=== PATIENT | female | born 1995 | race Caucasian/White ===

== ENCOUNTER 2019-04-28 20:12 | Emergency (ER) | payer MEDICAID ==
[~2019-04-28] VITALS: Ht 160 cm; Wt 52.2 kg
[~2019-04-28 20:12] MED LIST: NYQUIL
[2019-04-28 20:22] VITALS: BP 113/81
== END 2019-04-28 21:30 | disposition left against medical advice (07) ==
LOC: ER 20:12
DX: R51 Headache (principal); M54.2 Cervicalgia; M25.561 Pain in right knee; Z53.21 Procedure and treatment not carried out due to patient leaving prior to being seen by health care provider; V43.52XA Car driver injured in collision with other type car in traffic accident, initial encounter; Y93.89 Activity, other specified; Y92.488 Other paved roadways as the place of occurrence of the external cause; Y99.8 Other external cause status
CPT/HCPCS: 81025

== ENCOUNTER 2020-04-29 19:54 | Emergency (ER) | payer MEDICAID ==
[~2020-04-29] VITALS: Ht 160 cm; Wt 55.3 kg
[2020-04-30] MEDS ORDERED: SUMAtriptan SUCCINATE 25 MG TAB PO ONE (01:00)
[2020-04-30 01:10] VITALS: BP 126/80
== END 2020-04-30 01:17 | disposition home or self-care (01) ==
LOC: ER 19:54
DX: G43.909 Migraine, unspecified, not intractable, without status migrainosus (principal)

== ENCOUNTER 2021-01-13 22:06 | Emergency (ER) | payer MEDICAID ==
[~2021-01-13] VITALS: Ht 162.6 cm; Wt 52.2 kg
[2021-01-14 01:05] VITALS: BP 124/82
== END 2021-01-14 01:23 | disposition home or self-care (01) ==
LOC: ER 22:08
DX: S16.1XXA Strain of muscle, fascia and tendon at neck level, initial encounter (principal); S09.90XA Unspecified injury of head, initial encounter; R51.9 Headache, unspecified; X58.XXXA Exposure to other specified factors, initial encounter; Y93.89 Activity, other specified; Y92.89 Other specified places as the place of occurrence of the external cause; Y99.8 Other external cause status
CPT/HCPCS: 70450; 72125

== ENCOUNTER 2021-01-19 11:29 | Emergency (ER) | payer MEDICAID ==
[~2021-01-19] VITALS: Ht 162.6 cm; Wt 52.2 kg
[2021-01-19 11:54] VITALS: BP 120/77
== END 2021-01-19 12:44 | disposition home or self-care (01) ==
LOC: ER 11:29
DX: G43.909 Migraine, unspecified, not intractable, without status migrainosus (principal); F39 Unspecified mood [affective] disorder

== ENCOUNTER 2023-06-24 20:42 | Emergency (ER) | payer MEDICAID ==
[~2023-06-24] VITALS: Ht 162.6 cm; Wt 60.0 kg
[2023-06-24 22:10] VITALS: BP 111/76; PULSE 110; RESP 20; TEMP 98.3; O2SAT 100
[2023-06-24] MEDS ORDERED: KETOROLAC TROMETH 30 MG/ML 1ML VIAL IM ONE (22:45)
[2023-06-24] MEDS ORDERED: METOCLOPRAMIDE HCL 5MG/ml INJ 2ml VIAL IM ONE (22:45)
[2023-06-24] MEDS ORDERED: diphenhdrAMINE HCL 25 MG CAP PO ONE (22:45)
== END 2023-06-25 00:41 | disposition home or self-care (01) ==
LOC: EDBD 20:42 → ER 20:42 → EDSEX 20:42 → ER 06-25 00:40
DX: G43.909 Migraine, unspecified, not intractable, without status migrainosus (principal)
CPT/HCPCS: 70450; 96372; 99285; J1885; J2765